=== PATIENT | female | born 1955 | race Caucasian/White ===

== ENCOUNTER 2018-07-21 14:31 | Outpatient (CLI) | payer BC, OTHER | END 2018-07-21 14:32 | disposition home or self-care (01) | LOC: BICMAMMO 14:31 | PROVIDERS: ATTEND Family Medicine | DX: Z12.31 Encounter for screening mammogram for malignant neoplasm of breast (principal); N64.89 Other specified disorders of breast; Z80.3 Family history of malignant neoplasm of breast | CPT/HCPCS: 77063; 77067 ==

== ENCOUNTER 2020-07-26 13:35 | Outpatient (CLI) | payer BC, MEDICARE, OTHER ==
--- NOTE | 2020-07-26 14:26 | BD ---
EXAM: Bone densitometry using DEXA HISTORY: 64 yo female. Screening for postmenopausal osteoporosis FINDINGS: L1--bone mineral density 0.902 g/sq cm; T score -0.8 ; Z score 0.9 L2--bone mineral density 0.939 g/sq cm; T score -0.8 ; Z score 1.0 L3--bone mineral density 0.932 g/sq cm; T score -1.4 ; Z score 0.6 L4--bone mineral density 0.827 g/sq cm; T score -2.1 ; Z score -0.1 Total L1-L4--bone mineral density 0.899 g/sq cm; T score -1.3 ; Z score 0.5 Left femoral neck--bone mineral density0.757; T score -0.8 ; Z score 0.8 Total proximal left femur--bone mineral density 1.016; T score 0.6 ; Z score 1.9 There has been an interval improvement of 1.4% in the BMD of the lumbar spine and a improvement of 6.5% in the BMD of the proximal femur since the previous study of 07/17/2017. IMPRESSION: Osteopenia
--- NOTE | 2020-07-26 14:27 | MMO ---
Bilateral MAMMO Bilat Screen [facility]. CLINICAL HISTORY: Patient is 64 years old and is seen for screening. The patient has the following family history of breast cancer: 1aternal grandmother, malignant (generic). The patient has no personal history of cancer. The patient has a history of left Excisional Biopsy in 1974 - BENIGN X 3 and left Excisional Biopsy in 1984 - BENIGN x 2. VIEWS: The views performed were: bilateral craniocaudal with tomosynthesis and bilateral mediolateral oblique with tomosynthesis. FILMS COMPARED: The present examination has been compared to prior imaging studies performed at [facility] on 06/10/2011, 06/21/2012, 07/25/2013 and 07/21/2018. This study has been interpreted with the assistance of computer-aided detection. MAMMOGRAM FINDINGS: The breasts are heterogeneously dense, which could obscure a lesion on mammography. There are stable post operative changes seen in the left breast. There are no suspicious masses, suspicious calcifications, or new areas of architectural distortion. IMPRESSION: THERE IS NO MAMMOGRAPHIC EVIDENCE OF MALIGNANCY. A ROUTINE FOLLOW-UP MAMMOGRAM IN 1 YEAR IS RECOMMENDED. THE RESULTS OF THIS EXAM WERE SENT TO THE PATIENT. ACR BI-RADS Category 2 - Benign finding MAMMOGRAPHY NOTE: 1. A negative mammogram report should not delay a biopsy if a dominant of clinically suspicious mass is present. 2. Approximately 10% to 15% of breast cancers are not detected by mammography. 3. Adenosis and dense breasts may obscure an underlying neoplasm. Reported by: COURTNEY ACEVEDO MD Electonically Signed: [id number]
== END 2020-07-26 13:36 | disposition home or self-care (01) ==
LOC: BICMAMMO 13:35
PROVIDERS: ATTEND Family Medicine
DX: Z12.31 Encounter for screening mammogram for malignant neoplasm of breast (principal); Z13.820 Encounter for screening for osteoporosis; Z78.0 Asymptomatic menopausal state; Z80.3 Family history of malignant neoplasm of breast; Z91.89 Other specified personal risk factors, not elsewhere classified; M85.89 Other specified disorders of bone density and structure, multiple sites
CPT/HCPCS: 77063; 77067; 77080

== ENCOUNTER 2021-07-31 08:15 | Outpatient (CLI) | payer BC, MEDICARE, OTHER | END 2021-07-31 08:16 | disposition home or self-care (01) | LOC: BICMAMMO 08:15 | PROVIDERS: ATTEND Family Medicine | DX: Z12.31 Encounter for screening mammogram for malignant neoplasm of breast (principal); Z80.3 Family history of malignant neoplasm of breast; Z91.89 Other specified personal risk factors, not elsewhere classified | CPT/HCPCS: 77063; 77067 ==

== ENCOUNTER 2022-09-12 07:52 | Outpatient (CLI) | payer MEDICARE, OTHER | END 2022-09-12 07:53 | disposition home or self-care (01) | LOC: BICMAMMO 07:52 | PROVIDERS: ATTEND Family Medicine | DX: N64.4 Mastodynia (principal) | CPT/HCPCS: 76642; 77066; G0279 ==

== ENCOUNTER 2023-11-10 13:10 | Outpatient (CLI) | payer MEDICARE, OTHER | END 2023-11-10 13:11 | disposition home or self-care (01) | LOC: BICMAMMO 13:10 | PROVIDERS: ATTEND Family Medicine | DX: R92.8 Other abnormal and inconclusive findings on diagnostic imaging of breast (principal); N64.89 Other specified disorders of breast | CPT/HCPCS: 76642; 77066; G0279 ==